=== PATIENT | male | born 1945 | race Hispanic/Latino ===

== ENCOUNTER → 2017-11-14 | Outpatient (CLI) | payer OTHER ==
[~2017-11-14] MED LIST: IOHEXOL-350 50ML VIAL IV ONE
== END | disposition home or self-care (01) ==
LOC: OIH 09:39
PROVIDERS: ATTEND Internal Medicine Cardiovascular Disease
DX: I70.293 Other atherosclerosis of native arteries of extremities, bilateral legs (principal); I70.0 Atherosclerosis of aorta; I70.8 Atherosclerosis of other arteries
CPT/HCPCS: 75635; Q9967

== ENCOUNTER → 2017-12-01 | Outpatient (CLI) | payer OTHER ==
[~2017-12-01] VITALS: Ht 167.6 cm; Wt 65.8 kg
[~2017-12-01] MED LIST changes: -IOHEXOL-350 50ML VIAL IV ONE; +REGADENOSON 0.4 MG/5 ML PF SYG IVP SCH
== END | disposition home or self-care (01) ==
LOC: SHCH 08:10
PROVIDERS: ATTEND Internal Medicine Cardiovascular Disease
DX: I42.0 Dilated cardiomyopathy (principal)
CPT/HCPCS: 78452; 93017; 96374; A9500 ×2; J2785

== ENCOUNTER 2018-11-23 07:40 | Observation (INO) | payer OTHER ==
[2018-11-21 09:30] VITALS: BP 88/44
[2018-11-21 09:58] LABS: BASOPHILS % (AUTO) 0.3 % (0.0-5.0); EOSINOPHILS % (AUTO) 2.3 % (0.0-8.0); HEMATOCRIT 46.9 % (42-54); LYMPHOCYTES % (AUTO) 26.3 % (21.0-51.0); MEAN CORPUSCULAR HEMOGLOBIN 32.6 pg (27.0-33.0); MEAN CORPUSCULAR HGB CONC 33.3 g/dL (32.0-36.0); MEAN CORPUSCULAR VOLUME 97.8 fL (79-99); MONOCYTES % (AUTO) 10.3 % (3.0-13.0); NEUTROPHILS % (AUTO) 60.8 % (40.0-77.0); PLATELET COUNT (AUTO) 247 K/uL (130-400); RED CELL DISTRIBUTION WIDTH 13.9 % (11.0-15.5); WHITE BLOOD COUNT (AUTO) 9.4 K/uL (4.8-10.8)
[2018-11-21 10:06] LABS: CREATININE 1.4 mg/dL (0.5-1.5); POTASSIUM 5.2 mmol/L (3.5-5.1)
[2018-11-21 10:09] LABS: INR 1.16 (0.85-1.15); PARTIAL THROMBOPLASTIN TIME 29.1 SEC (26.3-35.5); PROTHROMBIN TIME 12.1 SEC (9.6-11.6)
--- NOTE | 2018-11-22 10:16 | NUR ---
LABS ABNORMAL LABS REPORTED TO DR. MENDEZ , NO FURTHER ORDERS GIVEN AT THIS TIME
[~2018-11-23] VITALS: Ht 170.2 cm; Wt 71.1 kg
[2018-11-23] VITALS (9 sets, daily range): BP systolic 92–129; BP diastolic 60–89
[~2018-11-23 07:40] MED LIST changes: +ATOR40TA71 PO; +CARV25TA PO; +DIGO125T87 PO; +DILT30TA3 PO; +LEVE500T19 PO; +MIDO5TAB PO; +RAMI5CAP66 PO; -REGADENOSON 0.4 MG/5 ML PF SYG IVP SCH; +RIVA20TA PO
[2018-11-23] MEDS: SODIUM CHLORIDE 0.9% 1000ML 1,000 ML IV SCH (09:57)
--- NOTE | 2018-11-23 10:17 | NUR ---
ASSESS PT STATES HE HAS OCCASIONAL COUGH WHICH IS ON AND OFF, STARTED A MONTH AGO. PT NOT IN ANY RESPIRATORY DISTRESS. Addendum: 11/23/18 at 1023 by JUSTYNA RODRIGUEZ RN RN Amended: Links added.
--- NOTE | 2018-11-23 10:23 | NUR ---
SEIZURE PREC LAST SEIZURE EPISODE WAS 4-5 MOS AGO
--- NOTE | 2018-11-23 11:47 | NUR ---
NOTE PT ON BED, NOT IN ANY APPARENT DISTRESS, STATES HE IS DOING JUST FINE.
--- NOTE | 2018-11-23 13:00 | NUR ---
DELAY SPOKE TO LYNDON ONEIL RN FROM NUCLEAR PHYSICIAN, STATED THERE WILL BE A DELAY, MAY GIVE PT CLEAR LIQUIDS. PT NOTIFIED OF DELAY, OFFERED APPLE JUICE ABOUT 120 ML, TOLERATED ORAL FLUIDS WELL.
[2018-11-23] MEDS ORDERED: LIDOCAINE HCL 2% 20ML ONE (17:44)
--- NOTE | 2018-11-23 17:45 | NUR ---
PROCEDURE PT TAKEN TO CURTAIN FRAMER FOR SCHEDULED PROCEDURE VIA BED
[2018-11-23] MEDS ORDERED: MEPERIDINE-PF 25 MG/ML SYG ONE ×2 (18:21→18:41)
[2018-11-23] MEDS ORDERED: MIDAZOLAM HCL 1 MG/ML 2ML VIAL ONE ×2 (18:21→18:41)
[2018-11-23] MEDS ORDERED: ATORVASTATIN CALCIUM 40 MG TABLET PO SCH (21:00)
--- NOTE | 2018-11-23 21:00 | NUR ---
PT ARRIVED FROM LAB TECHNOLOGIST @1999. REPORT GIVEN BY RAJESH FRANCO. PT HAS AV NODE ABLATION. PT HAS GROIN INCISION TO THE RIGHT SIDE. SOFT AND NON TENDER. DSAT DRESSING IN PLACE. PT HAS IV TO LEFT WRIST. IV FLUIDS COMPLETE. PT HAS RHONCHI. CRACKLES TO LUNG SOUNDS. BEDREST UNTIL 0000. PT IS STABLE AT THIS TIME. STATES NO PAIN. HAD MEAL. TOLERATED MEDICATIONS WELL.
[2018-11-23] MEDS: LEVETIRACETAM 500 MG TABLET PO SCH (21:08)
[2018-11-23] MEDS: MIDODRINE HCL 5 MG TABLET PO SCH (21:09)
[2018-11-23] MEDS: CARVEDILOL 25 MG TABLET PO SCH (21:09)
[2018-11-23] MEDS ORDERED: GUAIFENESIN-DM 200/20 MG 10 ML PO PRN (21:30)
[2018-11-24] MEDS: SODIUM CHLORIDE 0.9% 1000ML 1,000 ML IV SCH ×2 (02:02→05:01)
[2018-11-24 04:00] VITALS: BP 92/56
[2018-11-24 04:25] LABS: BASOPHILS % (AUTO) 0.3 % (0.0-5.0); EOSINOPHILS % (AUTO) 2.3 % (0.0-8.0); MEAN CORPUSCULAR HEMOGLOBIN 33.5 pg (27.0-33.0); MEAN CORPUSCULAR HGB CONC 34.7 g/dL (32.0-36.0); MEAN CORPUSCULAR VOLUME 96.4 fL (79-99); MONOCYTES % (AUTO) 10.9 % (3.0-13.0); NEUTROPHILS % (AUTO) 64.5 % (40.0-77.0); PLATELET COUNT (AUTO) 191 K/uL (130-400); RED BLOOD CELL COUNT(AUTO) 3.95 MIL/uL (4.50-6.20); RED CELL DISTRIBUTION WIDTH 13.9 % (11.0-15.5)
[2018-11-24 04:35] LABS: POTASSIUM 3.4 mmol/L (3.5-5.1)
--- NOTE | 2018-11-24 07:40 | NUR ---
ASSESSMENT ENCOUNTERED PT IN SEMI GLASER'S POSITION, A&OX3, CALM COOPERATIVE AND DOES NOT APPEAR TO BE IN ANY DISTRESS. PT DOES HAVE WEAKNESS TO RT UPPER AND LOWER EXTREMITIES, R>L, RT GROIN SOFT NONTENDER WITH NO OOZING OR HEMATOMA PRESENT. DP/PT PULSES PALPABLE. PT IS ABLE TO TOLERATE FOODS, FLUIDS AND MEDICATION WITHOUT THROAT CLEARING OR COUGH. CALL LIGHT WITHIN REACH, FAMILY AT BEDSIDE.
[2018-11-24 07:42] VITALS: BP 103/65
[2018-11-24] MEDS ORDERED: RIVAROXABAN 20 MG TABLET PO SCH (09:00)
[2018-11-24] MEDS ORDERED: LISINOPRIL 20 MG TABLET PO SCH (09:00)
[2018-11-24] MEDS: CARVEDILOL 25 MG TABLET PO SCH (10:28)
[2018-11-24 10:29] VITALS: BP 119/69
[2018-11-24] MEDS: LEVETIRACETAM 500 MG TABLET PO SCH (10:29)
[2018-11-24] MEDS: MIDODRINE HCL 5 MG TABLET PO SCH (10:29)
[2018-11-24 11:54] VITALS: BP 124/77
--- NOTE | 2018-11-24 13:00 | NUR ---
DISCHARGE INSTRUCTIONS GIVEN, PIV REMOVED AND INTACT, DISCHARGED HOME TO FAMILY VEHICLE VIA WHEELCHAIR.
[2018-11-24] MEDS ORDERED: DIGOXIN 125 MCG TABLET PO SCH (16:00)
== END 2018-11-24 13:00 | disposition home or self-care (01) ==
LOC: DAH 07:40 → 2AH 07:41
PROVIDERS: ADMIT Internal Medicine; ATTEND Internal Medicine
DX: I48.0 Paroxysmal atrial fibrillation (principal); D68.69 Other thrombophilia; I42.0 Dilated cardiomyopathy; I11.0 Hypertensive heart disease with heart failure; I50.42 Chronic combined systolic (congestive) and diastolic (congestive) heart failure; E78.00 Pure hypercholesterolemia, unspecified; I48.92 Unspecified atrial flutter; Z87.891 Personal history of nicotine dependence; Z95.0 Presence of cardiac pacemaker; Z79.01 Long term (current) use of anticoagulants
CPT/HCPCS: 36415 ×2; 80048 ×2; 85025 ×2; 85610; 85730; 93005; 93308; 93650; A4215; A4216; A4221; A4222; A4223 ×3; A4606; A4649 ×2; C1732; C1894; C8924; G0378 ×16; J1644; J2175 ×2; J2250 ×2; J3490; J7030; 99156; 99157

== ENCOUNTER 2018-12-21 08:04 | Observation (INO) | payer OTHER ==
[2018-12-19 10:00] VITALS: BP 97/71
[2018-12-19 10:33] LABS: BASOPHILS % (AUTO) 0.3 % (0.0-5.0); EOSINOPHILS % (AUTO) 6.3 % (0.0-8.0); HEMATOCRIT 44.2 % (42-54); LYMPHOCYTES % (AUTO) 31.4 % (21.0-51.0); MEAN CORPUSCULAR HEMOGLOBIN 33.2 pg (27.0-33.0); MEAN CORPUSCULAR VOLUME 97.8 fL (79-99); MONOCYTES % (AUTO) 10.3 % (3.0-13.0); NEUTROPHILS % (AUTO) 51.7 % (40.0-77.0); NUCLEATED RED BLOOD CELLS 0.1 % (0.0-0.19); PLATELET COUNT (AUTO) 192 K/uL (130-400); RED BLOOD CELL COUNT(AUTO) 4.52 MIL/uL (4.50-6.20); RED CELL DISTRIBUTION WIDTH 14.1 % (11.0-15.5); WHITE BLOOD COUNT (AUTO) 5.9 K/uL (4.8-10.8)
[2018-12-19 10:40] LABS: CREATININE 1.9 mg/dL (0.5-1.5); POTASSIUM 5.1 mmol/L (3.5-5.1)
[2018-12-19 10:44] LABS: INR 1.41 (0.85-1.15); PARTIAL THROMBOPLASTIN TIME 36.4 SEC (26.3-35.5); PROTHROMBIN TIME 14.6 SEC (9.6-11.6)
--- NOTE | 2018-12-19 10:50 | NUR ---
NOTE DURING PRE OP INTERVIEW, PT NOTED TO BE COUGHING OCCASIONALLY, PER PT, HE HAS HAD THIS COUGH FOR SOMETIME, HAS PHLEGM BUT NOT ABLE TO EXPECTORATE. ALSO NOTED PRONOUNCED PULSATIONS ON PT'S PACEMAKER SITE OCCASIONALLY, PT STATES IT DOES NOT BOTHER HIM, DENIES ANY PAIN/CHEST PAIN, SOB OR ANY OTHER SYMPTOMS WITH THE PULSATIONS, STATED IT HAS BEEN ONGOING FOR SEVERAL WEEKS NOW. PT ALSO STATED THAT HE TOOK HIS XARELTO YESTERDAY 12/18/18. CALLED AND NOTIFIED DR. MENDEZ. PER DR. MENDEZ, RE COUGH, HAVE PT SEE PCP, CALL OFFICE/[facility] OF COU[facility] WORSENS OR DOES NOT GET BETTER. RE PACEMAKER PULSATIONS, WILL EVALUATE PT DOS. NO OTHER ORDERS GIVEN. INSTRUCTIONS GIVEN TO PT AND DAUGHTER, STATED THEY WILL SEE PCP. VERBALIZED UNDERSTANDING.
--- NOTE | 2018-12-20 11:31 | NUR ---
labs abnormal labs reported to Lamar Samano INVENTORY MANAGER with Dr. Rich. she will speak to Dr. Rich and call back with further orders
[2018-12-21] VITALS (16 sets, daily range): BP systolic 96–138; BP diastolic 55–72
[~2018-12-21] VITALS: Ht 167.6 cm; Wt 74.8 kg
[2018-12-21] MEDS: CEFAZOLIN SODIUM 1 GM VIAL IVP SCH (06:00)
[~2018-12-21 08:04] MED LIST changes: -MIDO5TAB PO; +MIDO5TAB4 PO
[2018-12-21] MEDS ORDERED: CEFAZOLIN SODIUM 1 GM VIAL ONE (08:48)
[2018-12-21] MEDS ORDERED: BUPIVACAINE/PF 0.25% 30ML VIAL IJ ONE (08:48)
[2018-12-21] MEDS ORDERED: MIDAZOLAM HCL 1 MG/ML 2ML VIAL ONE ×3 (08:48→11:09)
[2018-12-21] MEDS ORDERED: MEPERIDINE-PF 25 MG/ML SYG ONE ×3 (08:48→11:09)
[2018-12-21] MEDS: SODIUM CHLORIDE 0.9% 1000ML 1,000 ML IV SCH ×3 (08:50→14:50)
[2018-12-21] MEDS ORDERED: IODIXANOL 320 MG/ML 100 ML VIAL ONE (08:54)
[2018-12-21] MEDS ORDERED: ACETAMINOPHEN-CODEINE 300/30MG TAB PO PRN (12:45)
[2018-12-21] MEDS: MIDODRINE HCL 5 MG TABLET PO SCH ×2 (14:00→20:48)
--- NOTE | 2018-12-21 15:00 | NUR ---
ARRIVAL TO FLOOR PT IS AAOX3 DENIES CP DENIES SOB DENIES NV NO COMPLAINTS, NOTED LEFT UPPER ARM CHEST DRESSING IN PLACE SP AICD, CLEAN DRY AND INTACT. LEFT ARM SLING IN PLACE. HOB UP AT 35 DEGREES. TELE PACK PLACED ON PATIENT, CALL LIGHT WITHIN REACH.
--- NOTE | 2018-12-21 15:45 | NUR ---
DR LOPEZ MADE AWARE OF PT ADMISSION
--- NOTE | 2018-12-21 16:00 | NUR ---
PENDING ADD ON TO DATA BASE WAITING FOR FAMILY TO ARRIVE, SPOKE WITH DAUGHTER ROMEO BRIONES AND STATES SHE WILL COME UP LATER
[2018-12-21] MEDS: DILTIAZEM HCL 60 MG TABLET PO SCH (16:45)
--- NOTE | 2018-12-21 17:00 | NUR ---
STATUS SITTING UP IN BED, NO COMPLAINTS. NURSE AIDE ASSISTING WITH MEAL.
[2018-12-21] MEDS: LEVETIRACETAM 500 MG TABLET PO SCH (20:48)
[2018-12-21] MEDS: CARVEDILOL 25 MG TABLET PO SCH (20:49)
[2018-12-21] MEDS ORDERED: ATORVASTATIN CALCIUM 40 MG TABLET PO SCH (21:00)
--- NOTE | 2018-12-21 22:35 | NUR ---
DR LOPEZ ASSESSED PT, NEW NO ORDERS. DISCHARGE FOR 12/22/2018
[2018-12-22 03:13] VITALS: BP 111/67
[2018-12-22 04:07] LABS: POTASSIUM 5.2 mmol/L (3.5-5.1)
[2018-12-22 04:16] LABS: CREATININE 1.2 mg/dL (0.5-1.5)
[2018-12-22] MEDS: CEFAZOLIN SODIUM 1 GM VIAL IVP SCH (05:23)
--- NOTE | 2018-12-22 05:53 | NUR ---
CALLED HOSPITALIST DUST MIXER DUE TO ELEVATED POTASSIUM. ORDER TO REPEAT LEVEL AT THIS TIME.
--- NOTE | 2018-12-22 06:40 | NUR ---
REPEAT POTASSIUM LEVEL 4.3
[2018-12-22 07:00] VITALS: BP 143/77
--- NOTE | 2018-12-22 08:00 | NUR ---
ASSESSMENT ENCOUNTERED PT IN GLASER'S POSITION, A&OX3, CALM COOPERATIVE AND DOES NOT APPEAR TO BE IN ANY DISTRESS NOR ANY NEURO DEFICITS PRESENT. LEFT SHOULDER DRESSING DRY, INTACT AND SECURED WITH ARM SLING. PT DENIES PAIN, SOB, NAUSEA. PT'S WHEELCHAIR AT BEDSIDE, PADDED SIDE RAILS UP X 3, CALL LIGHT WITHIN REACH.
[2018-12-22] MEDS ORDERED: LISINOPRIL 20 MG TABLET PO SCH (09:00)
[2018-12-22] MEDS ORDERED: DIGOXIN 125 MCG TABLET PO SCH (09:00)
[2018-12-22] MEDS: LEVETIRACETAM 500 MG TABLET PO SCH (09:02)
[2018-12-22] MEDS: CARVEDILOL 25 MG TABLET PO SCH (09:03)
[2018-12-22] MEDS: DILTIAZEM HCL 60 MG TABLET PO SCH (09:03)
[2018-12-22] MEDS: MIDODRINE HCL 5 MG TABLET PO SCH (09:04)
[2018-12-22 11:00] VITALS: BP 98/53
[2018-12-22] MEDS ORDERED: TRAM50TA4 PO (11:39)
--- NOTE | 2018-12-22 12:00 | NUR ---
DISCHARGE INSTRUCTIONS GIVEN, PIV REMOVED AND INTACT, DISCHARGED HOME TO FAMILY VEHICLE VIA WHEELCHAIR.
== END 2018-12-22 13:35 | disposition home or self-care (01) ==
LOC: DAH 08:04 → DAHIP 08:05 → DAH 08:05 → 2AH 14:38
PROVIDERS: ADMIT Internal Medicine; ATTEND Internal Medicine
DX: I48.21 Permanent atrial fibrillation (principal); I48.0 Paroxysmal atrial fibrillation; I42.0 Dilated cardiomyopathy; I48.92 Unspecified atrial flutter; I73.9 Peripheral vascular disease, unspecified; Z95.0 Presence of cardiac pacemaker; Z79.01 Long term (current) use of anticoagulants; Z79.899 Other long term (current) drug therapy
CPT/HCPCS: 33207; 33225; 33233; 36415 ×2; 71045; 80048 ×2; 84132; 85025; 85610; 85730; 93005; A4215; A4216; A4221; A4222; A4223 ×2; A4606; A4663; C1769 ×2; C1898; C1900; C2621; G0378 ×25; J0690; J2175 ×3; J2250 ×3; J3490; Q9967; 99156; 99157

== ENCOUNTER 2021-11-24 10:48 | Inpatient (IN) | payer OTHER ==
[~2021-11-24] VITALS: Ht 172.7 cm; Wt 78.5 kg
[~2021-11-24 10:48] MED LIST changes: +DIGO125T71 PO; -DIGO125T87 PO; +TRAM50TA4 PO
[2021-11-24] MEDS ORDERED: MORPHINE 2 MG SYG IVP ONE (11:30)
[2021-11-24] MEDS ORDERED: 0.9%NACL 1000ML 1,000 ML IV ONE ×2 (11:30→13:00)
[2021-11-24] MEDS ORDERED: ONDANSETRON 4MG INJ IVP ONE (11:30)
[2021-11-24 11:38] LABS: BASOPHILS % (AUTO) 0.1 % (0.0-5.0); EOSINOPHILS % (AUTO) 0.1 % (0.0-8.0); HEMATOCRIT 41.5 % (42-54); LYMPHOCYTES % (AUTO) 6.2 % (21.0-51.0); MEAN CORPUSCULAR HEMOGLOBIN 31.7 pg (27.0-33.0); MEAN CORPUSCULAR HGB CONC 34.5 g/dL (32.0-36.0); MONOCYTES % (AUTO) 2.9 % (3.0-13.0); NEUTROPHILS % (AUTO) 89.1 % (40.0-77.0); PLATELET COUNT (AUTO) 100 K/uL (130-400); RED BLOOD CELL COUNT(AUTO) 4.51 MIL/uL (4.50-6.20); RED CELL DISTRIBUTION WIDTH 13.5 % (11.0-15.5); WHITE BLOOD COUNT (AUTO) 14.3 K/uL (4.8-10.8)
[2021-11-24 11:57] LABS: CREATININE 3.3 mg/dL (0.5-1.5); POTASSIUM 3.9 mmol/L (3.5-5.1)
[2021-11-24 12:02] LABS: ALBUMIN 2.9 g/dL (3.5-5.0); TOTAL PROTEIN, SERUM 7.1 g/dL (6.0-8.3)
[2021-11-24] MEDS ORDERED: CEFTRIAXONE 1G VIAL IVP ONE (12:30)
[2021-11-24] MEDS ORDERED: 0.9% NACL 500ML IV.SOLN 500 ML IV ONE (13:30)
[2021-11-24 14:33] LABS: APPEARANCE,URINE CLOUDY (CLEAR); BILIRUBIN,URINE NEGATIVE (NEGATIVE); COLOR,URINE YELLOW (YELLOW); GLUCOSE, URINE (UA) NEGATIVE (NEGATIVE); KETONES,URINE NEGATIVE (NEGATIVE); LEUKOCYTE ESTERASE ,URINE 250 Leu/uL (NEGATIVE); NITRATE,URINE NEGATIVE (NEGATIVE); OCCULT BLOOD,URINE MODERATE (NEGATIVE); PH,URINE 5.5 (5.0-8.0); PROTEIN,URINE 100 mg/dL (NEGATIVE); UROBILINOGEN,URINE 0.2 mg/dL (0.2-1.0)
[2021-11-24 14:48] LABS: BACTERIA,URINE MOD /HPF (None Seen); MUCUS,URINE FEW LPF (None Seen); OTHER CASTS, URINE 1 /LPF (None Seen); SQUAMOUS EPITHELIAL CELL,UR RARE /HPF (0-2)
[2021-11-24] MEDS ORDERED: NOREPINEPHRIN 4MG/NS 250ML 250 ML IV SCH (15:00)
[2021-11-24] MEDS ORDERED: CARV12.511 PO (17:43)
[2021-11-24] MEDS ORDERED: ONDANSETRON 4MG INJ IVP PRN (18:00)
[2021-11-24] MEDS ORDERED: ACETAMINOPHEN 325 MG TAB PO PRN (18:00)
[2021-11-24] MEDS ORDERED: ACETAMINOPHEN 650 MG SUPPOSITORY RC PRN (18:00)
[2021-11-24] MEDS ORDERED: LACTULOSE 20 GM/30 ML UDCUP PO PRN (18:00)
[2021-11-24] MEDS: LACTATED RINGERS 1000ML 1,000 ML IV SCH (18:48)
[2021-11-24] MEDS: MEROPENEM 1 GM VIAL IVP SCH (18:48)
[2021-11-24] MEDS: INSULIN HUMULIN R 100 UNIT/ML 3ML SQ SCH (21:00)
[2021-11-25] MEDS: LACTATED RINGERS 1000ML 1,000 ML IV SCH ×3 (03:20→18:53)
[2021-11-25 05:47] LABS: BASOPHILS % (AUTO) 0.1 % (0.0-5.0); EOSINOPHILS % (AUTO) 0.4 % (0.0-8.0); HEMATOCRIT 37.7 % (42-54); LYMPHOCYTES % (AUTO) 6.2 % (21.0-51.0); MEAN CORPUSCULAR HEMOGLOBIN 31.6 pg (27.0-33.0); MEAN CORPUSCULAR HGB CONC 34.5 g/dL (32.0-36.0); MEAN CORPUSCULAR VOLUME 91.7 fL (79-99); MONOCYTES % (AUTO) 5.2 % (3.0-13.0); NEUTROPHILS % (AUTO) 87.5 % (40.0-77.0); PLATELET COUNT (AUTO) 79 K/uL (130-400); RED BLOOD CELL COUNT(AUTO) 4.11 MIL/uL (4.50-6.20); RED CELL DISTRIBUTION WIDTH 13.5 % (11.0-15.5); WHITE BLOOD COUNT (AUTO) 8.2 K/uL (4.8-10.8)
[2021-11-25] MEDS: MEROPENEM 1 GM VIAL IVP SCH ×2 (06:00→19:15)
[2021-11-25 06:05] LABS: CREATININE 1.7 mg/dL (0.5-1.5); MAGNESIUM 1.5 mg/dL (1.80-2.40); PHOSPHORUS 3.1 mg/dL (2.5-4.9); POTASSIUM 3.7 mmol/L (3.5-5.1)
[2021-11-25] MEDS: INSULIN HUMULIN R 100 UNIT/ML 3ML SQ SCH ×4 (07:30→20:48)
[2021-11-25 09:00] VITALS: BP 127/71
[2021-11-25] MEDS ORDERED: ENOXAPARIN SODIUM 30 MG/0.3 ML SQ SCH (09:00)
[2021-11-25] MEDS: LEVETIRACETAM 500 MG TABLET PO SCH ×2 (12:37→20:40)
[2021-11-25] MEDS: TRAMADOL HCL 50 MG TABLET PO PRN (12:37)
[2021-11-25] MEDS: RIVAROXABAN 20 MG TABLET PO SCH (12:38)
[2021-11-25] MEDS: PANTOPRAZOLE 40 MG TAB DR PO SCH (12:38)
[2021-11-25] MEDS ORDERED: POTASSIUM CHLORIDE 10% ELIXIR 20 MEQ/15 ML UDCUP PO PRN (13:30)
[2021-11-25] MEDS ORDERED: LIDOCAINE HCL-MPF 1% 2ML VIAL IV PRN (13:30)
[2021-11-25] MEDS ORDERED: POTASSIUM CHLORIDE 20MEQ/100ML 100 ML IV PRN (13:30)
[2021-11-25] MEDS: MAGNESIUM 2GM PREMIX 50ML 50 ML IV PRN (15:39)
[2021-11-25] MEDS: KCL 20 MEQ ERTAB PO PRN (15:42)
[2021-11-25 16:07] VITALS: BP 122/70
[2021-11-25 20:00] VITALS: BP 133/61
[2021-11-25] MEDS: ATORVASTATIN 40 MG TABLET PO SCH (20:40)
[2021-11-25 23:56] VITALS: BP 128/60
[2021-11-26] MEDS: LACTATED RINGERS 1000ML 1,000 ML IV SCH ×3 (01:32→18:17)
[2021-11-26 04:02] VITALS: BP 128/69
[2021-11-26] MEDS: MEROPENEM 1 GM VIAL IVP SCH ×2 (04:58→18:10)
[2021-11-26 05:14] LABS: HEMATOCRIT 31.3 % (42-54); MEAN CORPUSCULAR HEMOGLOBIN 31.7 pg (27.0-33.0); MEAN CORPUSCULAR HGB CONC 34.2 g/dL (32.0-36.0); MEAN CORPUSCULAR VOLUME 92.6 fL (79-99); RED BLOOD CELL COUNT(AUTO) 3.38 MIL/uL (4.50-6.20); RED CELL DISTRIBUTION WIDTH 13.6 % (11.0-15.5)
[2021-11-26 05:38] LABS: CREATININE 1.1 mg/dL (0.5-1.5); MAGNESIUM 1.5 mg/dL (1.80-2.40); POTASSIUM 3.9 mmol/L (3.5-5.1)
[2021-11-26] MEDS: INSULIN HUMULIN R 100 UNIT/ML 3ML SQ SCH ×4 (05:58→20:05)
[2021-11-26] MEDS: MAGNESIUM 2GM PREMIX 50ML 50 ML IV PRN (05:58)
[2021-11-26 07:54] VITALS: BP 131/67
[2021-11-26] MEDS: RIVAROXABAN 20 MG TABLET PO SCH (10:31)
[2021-11-26] MEDS: PANTOPRAZOLE 40 MG TAB DR PO SCH (10:32)
[2021-11-26] MEDS: LEVETIRACETAM 500 MG TABLET PO SCH ×2 (10:32→20:10)
[2021-11-26] MEDS: TRAMADOL HCL 50 MG TABLET PO PRN (10:34)
[2021-11-26 10:51] VITALS: BP 137/75
[2021-11-26 15:32] VITALS: BP 139/73
[2021-11-26 15:57] LABS: INR 1.9 (0.85-1.15)
[2021-11-26 15:58] LABS: PARTIAL THROMBOPLASTIN TIME 46.2 SEC (26.3-35.5)
[2021-11-26 19:43] VITALS: BP 155/66
[2021-11-26] MEDS: ATORVASTATIN 40 MG TABLET PO SCH (20:10)
[2021-11-27] VITALS (7 sets, daily range): BP systolic 132–151; BP diastolic 58–81
[2021-11-27] MEDS: LACTATED RINGERS 1000ML 1,000 ML IV SCH ×3 (01:02→19:00)
[2021-11-27] MEDS: MEROPENEM 1 GM VIAL IVP SCH (04:58)
[2021-11-27 05:29] LABS: HEMATOCRIT 35.2 % (42-54); MEAN CORPUSCULAR HEMOGLOBIN 31.6 pg (27.0-33.0); MEAN CORPUSCULAR HGB CONC 35.2 g/dL (32.0-36.0); MEAN CORPUSCULAR VOLUME 89.8 fL (79-99); RED BLOOD CELL COUNT(AUTO) 3.92 MIL/uL (4.50-6.20); RED CELL DISTRIBUTION WIDTH 13.8 % (11.0-15.5); WHITE BLOOD COUNT (AUTO) 4.8 K/uL (4.8-10.8)
[2021-11-27] MEDS: INSULIN HUMULIN R 100 UNIT/ML 3ML SQ SCH ×4 (06:02→20:46)
[2021-11-27 06:10] LABS: CREATININE 1.1 mg/dL (0.5-1.5); MAGNESIUM 1.5 mg/dL (1.80-2.40); POTASSIUM 3.5 mmol/L (3.5-5.1)
[2021-11-27] MEDS: KCL 20 MEQ ERTAB PO PRN ×2 (06:41→17:55)
[2021-11-27] MEDS: MAGNESIUM 2GM PREMIX 50ML 50 ML IV PRN (06:41)
[2021-11-27] MEDS: PANTOPRAZOLE 40 MG TAB DR PO SCH (09:40)
[2021-11-27] MEDS: LEVETIRACETAM 500 MG TABLET PO SCH ×2 (09:40→20:45)
[2021-11-27] MEDS: RIVAROXABAN 20 MG TABLET PO SCH (09:40)
[2021-11-27] MEDS ORDERED: CEFTRIAXONE 2GM VIAL IVP SCH (14:00)
[2021-11-27] MEDS: ATORVASTATIN 40 MG TABLET PO SCH (20:45)
[2021-11-28] MEDS: LACTATED RINGERS 1000ML 1,000 ML IV SCH (01:50)
[2021-11-28 04:17] VITALS: BP 159/75
[2021-11-28 05:44] LABS: HEMATOCRIT 36.1 % (42-54); MEAN CORPUSCULAR HEMOGLOBIN 31.6 pg (27.0-33.0); MEAN CORPUSCULAR HGB CONC 35.2 g/dL (32.0-36.0); MEAN CORPUSCULAR VOLUME 89.8 fL (79-99); RED BLOOD CELL COUNT(AUTO) 4.02 MIL/uL (4.50-6.20); RED CELL DISTRIBUTION WIDTH 13.3 % (11.0-15.5); WHITE BLOOD COUNT (AUTO) 4.4 K/uL (4.8-10.8)
[2021-11-28] MEDS: INSULIN HUMULIN R 100 UNIT/ML 3ML SQ SCH ×2 (06:05→11:30)
[2021-11-28 06:06] LABS: CREATININE 0.9 mg/dL (0.5-1.5); MAGNESIUM 1.7 mg/dL (1.80-2.40); POTASSIUM 3.2 mmol/L (3.5-5.1)
[2021-11-28] MEDS: MAGNESIUM 2GM PREMIX 50ML 50 ML IV PRN (06:18)
[2021-11-28] MEDS: KCL 20 MEQ ERTAB PO PRN (06:18)
[2021-11-28] MEDS: RIVAROXABAN 20 MG TABLET PO SCH (07:30)
[2021-11-28] MEDS: LEVETIRACETAM 500 MG TABLET PO SCH (07:30)
[2021-11-28] MEDS: PANTOPRAZOLE 40 MG TAB DR PO SCH (07:31)
[2021-11-28 08:00] VITALS: BP 152/80
[2021-11-28 12:00] VITALS: BP 180/93
[2021-11-28] MEDS ORDERED: CLONIDINE HCL 0.1 MG TABLET PO PRN (12:30)
[2021-11-28] MEDS ORDERED: LACTULOSE 20 GM/30 ML UDCUP PR SCH (12:30)
[2021-11-28 13:03] VITALS: BP 145/72
[2021-11-28 16:41] VITALS: BP 154/86
[2021-11-28] MEDS ORDERED: CARVEDILOL 12.5 MG TABLET PO SCH ×2 (21:00)
== END 2021-11-28 17:20 | DRG 871 ==
LOC: EDH 10:48 → EDHIP 17:53 → 3BH 11-25 09:05
PROVIDERS: ADMIT Internal Medicine; ATTEND Internal Medicine
PROC: 02HV33Z Insertion of Infusion Device into Superior Vena Cava, Percutaneous Approach (ICD-10-PCS; principal; 2021-11-26)
DX: A41.59 Other Gram-negative sepsis (principal); R65.21 Severe sepsis with septic shock; N39.0 Urinary tract infection, site not specified; N17.9 Acute kidney failure, unspecified; I48.0 Paroxysmal atrial fibrillation; D64.9 Anemia, unspecified; I49.5 Sick sinus syndrome; D69.6 Thrombocytopenia, unspecified; E78.5 Hyperlipidemia, unspecified; N40.0 Benign prostatic hyperplasia without lower urinary tract symptoms; N18.9 Chronic kidney disease, unspecified; J44.9 Chronic obstructive pulmonary disease, unspecified; E86.0 Dehydration; I12.9 Hypertensive chronic kidney disease with stage 1 through stage 4 chronic kidney disease, or unspecified chronic kidney disease; Z74.01 Bed confinement status; Z79.01 Long term (current) use of anticoagulants; Z95.0 Presence of cardiac pacemaker; Z86.73 Personal history of transient ischemic attack (TIA), and cerebral infarction without residual deficits
CPT/HCPCS: 36415; 71045; 74176; 76770; 80048; 80053; 81001; 82948; 83605; 83735; 84100; 84484; 85025; 85027; 85610; 85730; 87040; 87077; 87088; 87186; 92610; 93005; 97039; C1894; G0378; J0696; J2185; J2405; J3475; J3490; J7120

== ENCOUNTER → 2023-01-05 | Outpatient (CLI) | payer OTHER ==
[~2023-01-05] MED LIST changes: +CARV12.511 PO; -CARV25TA PO; +IBUP-1493 PO; -TRAM50TA4 PO
== END | disposition home or self-care (01) ==
LOC: LAB 14:32
PROVIDERS: ATTEND Nurse Practitioner Acute Care
DX: R60.9 Edema, unspecified (principal)
CPT/HCPCS: 36415; 83880

== ENCOUNTER → 2023-01-07 | Outpatient (CLI) | payer OTHER | END | disposition home or self-care (01) | LOC: RAH 15:48 | PROVIDERS: ATTEND Internal Medicine Cardiovascular Disease | DX: R60.9 Edema, unspecified (principal) | CPT/HCPCS: 76882 ==